=== PATIENT | female | born 1985 | race Caucasian/White ===

== ENCOUNTER 2016-12-01 19:40 | Emergency (ER) | payer SELFPAY ==
--- NOTE | 2016-12-01 20:26 | ER Document Report ---
HPI - HPI Patient complains to provider of: throat pain Pain Level: 3 Context: Patient is a 31-year-old female that comes emergency department for chief complaint of a tender swollen area in her left neck area. She denies any particular pain with swallowing, she denies fever, she denies congestion, cough , she denies any other symptoms. She states she is just nervous about it and wants it checked out. - REPRODUCTIVE Reproductive: DENIES: : - DERM Skin Color: Normal Past Medical History - General Information source: Patient - Social History Smoking Status: Never Smoker Frequency of alcohol use: None Drug Abuse: None Lives with: Family Family History: Reviewed & Not Pertinent Patient has suicidal ideation: No Patient has homicidal ideation: No - Medical History Medical History: Negative Renal/ Medical History: Denies: Hx Peritoneal Dialysis Surgical Hx: Negative - Immunizations Immunizations up to date: Yes Hx Diphtheria, Pertussis, Tetanus Vaccination: Yes Vertical Provider Document - INFECTION CONTROL TRAVEL OUTSIDE OF THE [place] IN LAST 30 DAYS: No - HEENT HEENT: Atraumatic, Normocephalic. negative: Pharyngeal Tenderness, Pharyngeal Erythema, Tympanic Membrane Red, Tympanic Membrane Bulging - NECK Neck: negative: Normal Inspection - There is a small slightly enlarged tender lymph node in the left anterior cervical chain, otherwise unremarkable - RESPIRATORY Respiratory: Breath Sounds Normal, No Respiratory Distress O2 Sat by Pulse Oximetry: 98 - CARDIOVASCULAR Cardiovascular: Regular Rate, Regular Rhythm - GI/ABDOMEN Gastrointestinal: Abdomen Soft, Abdomen Non-Tender - MUSCULOSKELETAL/EXTREMETIES Musculoskeletal/Extremeties: MAEW, FROM, Non-Tender Course - Re-evaluation Re-evalutation: small tender lymph node in the left anterior cervical change with otherwise unremarkable ENT including unremarkable pharyngeal exam. Patient declines treatment for this, states she just wanted to know what it is. No erythema, swelling, significant tenderness, soft tissue swelling, or other concerning abnormality - Vital Signs Vital signs: Temp Pulse Resp BP Pulse Ox 97.9 F 111 H 16 129/88 H 98 12/01/16 19:49 12/01/16 19:49 12/01/16 19:49 12/01/16 19:49 12/01/16 19:49 Discharge - Discharge Clinical Impression: Neck pain Condition: Stable Disposition: HOME, SELF-CARE Additional Instructions: Your examination is consistent with a small tender swollen lymph node, this should simply resolve with time. Take ibuprofen if needed. Follow-up with primary care. Return to emergency department for concerning symptoms.
[2016-12-01 22:22] VITALS: BP 128/78
== END 2016-12-01 22:21 | disposition home or self-care (01) ==
LOC: ER 19:40
DX: M54.2 Cervicalgia (principal); R07.0 Pain in throat; R59.1 Generalized enlarged lymph nodes
CPT/HCPCS: 99283

== ENCOUNTER 2018-07-30 20:22 | Outpatient (CLI) | payer SELFPAY ==
[2018-07-30 21:25] LABS: APPEARANCE,URINE CLEAR; BILIRUBIN,URINE NEGATIVE (NEGATIVE); COLOR,URINE COLORLESS; GLUCOSE, URINE NEGATIVE (NEGATIVE); KETONES,URINE NEGATIVE (NEGATIVE); LEUKOCYTE ESTERASE,URINE NEGATIVE (NEGATIVE); NITRITE,URINE NEGATIVE (NEGATIVE); PROTEIN,URINE NEGATIVE (NEGATIVE); URINE SPECIFIC GRAVITY 1.002; UROBILINOGEN,URINE NEGATIVE mg/dL (<2.0)
[2018-07-30 21:30] LABS: BACTERIA (WET MOUNT) 4+ BACTERIA SEEN; EPITHELIALS (WET MOUNT) 4+ EPITHELIALS SEEN; RBCS (WET MOUNT) 3+ RBCS SEEN; T.VAGINALIS (WET MOUNT) NO TRICHOMONAS SEEN; WBCS (WET MOUNT) 3+ WBCS SEEN; YEAST (WET MOUNT) NO YEAST SEEN
[2018-07-30 21:47] LABS: URINE AMPHETAMINES SCREEN NEGATIVE; URINE BARBITURATES SCREEN NEGATIVE; URINE BENZODIAZEPINES SCREEN NEGATIVE; URINE COCAINE SCREEN NEGATIVE; URINE MARIJUANA (THC) SCREEN NEGATIVE; URINE METHADONE SCREEN NEGATIVE; URINE PHENCYCLIDINE SCREEN NEGATIVE
[2018-07-30 22:56] LABS: CHLAM PCR NOT DETECTED (NOT DETECT); GON PCR NOT DETECTED (NOT DETECT)
== END 2018-07-30 23:14 | disposition home or self-care (01) ==
LOC: LC 20:22
PROVIDERS: ATTEND Obstetrics & Gynecology
PROC: 4A1HXCZ Monitoring of Products of Conception, Cardiac Rate, External Approach (ICD-10-PCS; principal; 2018-07-30)
DX: O99.89 Other specified diseases and conditions complicating pregnancy, childbirth and the puerperium (principal); N89.8 Other specified noninflammatory disorders of vagina; Z3A.21 21 weeks gestation of pregnancy
CPT/HCPCS: 59899; 87210; 81001; 80307; 87491; 87591; Q0114

== ENCOUNTER 2018-12-14 08:01 | Outpatient (CLI) | payer BC ==
--- NOTE | 2018-12-14 10:02 | Non Stress Test Report ---
Non Stress Test Datetime Report Generated by CPN: 12/14/2018 10:02 DEMOGRAPHIC EGA NST: 40.4 VITAL SIGNS Temperature - NST: 98.1 RESP - NST: 16 MONITORING Monitor Explained: Monitor Explained; Test Explained; Patient Verbalized Understanding Time on Monitor: 12/14/2018 08:27 Time off Monitor: 12/14/2018 09:49 NST Duration: 82 NST INTERVENTIONS NST Interventions: PO Hydration Physician Notified NST: Dr. Younger BABY A: [id number] BABY A Movement : Present Contraction Frequency : irregular FHR Baseline : 135 Accelerations : 15X15 Decelerations : None Variability : Moderate 6-25bpm NST Review: Meets Criteria for Reactive NST NST Review and Verified By : Dalton Felix RN NST Results: Reactive NST REPORT Report Trigger: Send Report
[2018-12-14 11:00] LABS: APPEARANCE,URINE SLIGHTLY-CLOUDY; BILIRUBIN,URINE NEGATIVE (NEGATIVE); COLOR,URINE YELLOW; GLUCOSE, URINE NEGATIVE (NEGATIVE); KETONES,URINE NEGATIVE (NEGATIVE); LEUKOCYTE ESTERASE,URINE TRACE (NEGATIVE); NITRITE,URINE NEGATIVE (NEGATIVE); PROTEIN,URINE NEGATIVE (NEGATIVE); URINE SPECIFIC GRAVITY 1.014; UROBILINOGEN,URINE NEGATIVE mg/dL (<2.0)
[2018-12-14 11:25] LABS: URINE AMPHETAMINES SCREEN NEGATIVE; URINE BARBITURATES SCREEN NEGATIVE; URINE BENZODIAZEPINES SCREEN NEGATIVE; URINE COCAINE SCREEN NEGATIVE; URINE MARIJUANA (THC) SCREEN NEGATIVE; URINE METHADONE SCREEN NEGATIVE; URINE PHENCYCLIDINE SCREEN NEGATIVE
== END 2018-12-14 10:17 | disposition home or self-care (01) ==
LOC: LC 08:01
PROVIDERS: ATTEND Obstetrics & Gynecology
PROC: 4A1HXCZ Monitoring of Products of Conception, Cardiac Rate, External Approach (ICD-10-PCS; principal; 2018-12-14)
DX: O99.283 Endocrine, nutritional and metabolic diseases complicating pregnancy, third trimester (principal); E86.0 Dehydration; O48.0 Post-term pregnancy; Z3A.40 40 weeks gestation of pregnancy
CPT/HCPCS: 59025; 80307; 81005

== ENCOUNTER 2018-12-15 03:51 | Inpatient (IN) | payer BC ==
[2018-12-15] MEDS ORDERED: OXYTOCIN/NORMAL SALINE 20 UNIT/1,000 ML RTUINJ IV PRN ×2 (04:05→10:33)
[2018-12-15] MEDS ORDERED: RINGERS SOLUTION,LACTATED 1,000 ML IV PRN (04:05)
[2018-12-15 04:22] LABS: APPEARANCE,URINE SLIGHTLY-CLOUDY; BILIRUBIN,URINE NEGATIVE (NEGATIVE); COLOR,URINE YELLOW; GLUCOSE, URINE NEGATIVE (NEGATIVE); KETONES,URINE TRACE mg/dL (NEGATIVE); LEUKOCYTE ESTERASE,URINE TRACE (NEGATIVE); NITRITE,URINE NEGATIVE (NEGATIVE); PROTEIN,URINE NEGATIVE (NEGATIVE); URINE SPECIFIC GRAVITY 1.014; UROBILINOGEN,URINE NEGATIVE mg/dL (<2.0)
[2018-12-15] MEDS ORDERED: RINGERS SOLUTION,LACTATED 300 ML IV ONE (04:30)
[2018-12-15 04:31] LABS: URINE AMPHETAMINES SCREEN NEGATIVE; URINE BARBITURATES SCREEN NEGATIVE; URINE BENZODIAZEPINES SCREEN NEGATIVE; URINE COCAINE SCREEN NEGATIVE; URINE MARIJUANA (THC) SCREEN NEGATIVE; URINE METHADONE SCREEN NEGATIVE; URINE PHENCYCLIDINE SCREEN NEGATIVE
[2018-12-15 04:55] LABS: ABSOLUTE LYMPHOCYTES (AUTO) 1.6 10^3/uL (0.5-4.7); ABSOLUTE MONOCYTES (AUTO) 0.9 10^3/uL (0.1-1.4); ABSOLUTE NEUT (AUTO) 13.1 10^3/uL (1.7-8.2); BASOPHILS % (AUTO) 0.2 % (0-2); EOSINOPHILS % (AUTO) 0.2 % (0-6); HEMATOCRIT 40.8 % (36.0-47.0); HEMOGLOBIN 13.9 g/dL (12.0-15.5); MEAN CORPUSCULAR HEMOGLOBIN 32.6 pg (27.0-33.4); MEAN CORPUSCULAR VOLUME 96 fl (80-97); MONOCYTES % (AUTO) 5.6 % (3-13); PLATELET COUNT 208 10^3/uL (150-450); RED BLOOD COUNT 4.25 10^6/uL (3.72-5.28); RED CELL DISTRIBUTION WIDTH 13.5 % (11.5-14.0); TOTAL CELLS COUNTED % (AUTO) 100 %; WHITE BLOOD COUNT 15.5 10^3/uL (4.0-10.5)
[2018-12-15] MEDS ORDERED: LIDOCAINE 1% INJ-PF (10 MG/ML) 30 ML SDV ONE ×2 (05:11→07:41)
[2018-12-15] MEDS ORDERED: OXYTOCIN 10 UNIT/ML VIAL ONE (05:11)
[2018-12-15] MEDS ORDERED: MISOPROSTOL 0.2 MG TABLET ONE ×2 (05:11→07:41)
[2018-12-15] MEDS ORDERED: OXYTOCIN/NORMAL SALINE 0 UNIT/0 ML RTUINJ ONE (05:12)
[2018-12-15] MEDS ORDERED: NALBUPHINE HCL INJ 10 MG/1 ML AMPULE ONE (05:35)
[2018-12-15] MEDS ORDERED: PROMETHAZINE HCL INJ 25 MG/1 ML VIAL ONE (05:35)
[2018-12-15] MEDS ORDERED: PROMETHAZINE HCL INJ 25 MG/1 ML VIAL IV ONE (06:00)
[2018-12-15] MEDS ORDERED: NALBUPHINE HCL INJ 10 MG/1 ML AMPULE INJ ONE (06:00)
--- NOTE | 2018-12-15 07:40 | Admission Physical ---
Datetime Report Generated by CPN: 12/15/2018 07:39 CURRENT ADMISSION Chief Complaint: Uterine Contractions Indication for Induction: Not Applicable Admit Impression : Term, Intrauterine ; Active Labor Admit Plan: Admit to Unit; Initiate Labor Protocol ALLERGIES Medication Allergies: Unknown Medication Allergies: No Known Allergies (07/30/2018) Latex: No Latex Allergies Environmental Allergies: Cats OBSTETRICAL HISTORY EDC: 12/10/2018 00:00 : 3 Para: 1 Term: 1 : 0 SAB: 0 IAB: 0 Ectopic: 0 Livin Cesareans: 0 VBACs: 0 Multiple Births: 0 Gestational Diabetes: No Rh Sensitization: No Incompetent Cervix: No SAMIA: No Infertility: No ART Treatment: No Uterine Anomaly: No IUGR: No Hx Previous C/S: No Macrosomia: No Hx Loss/Stillborn: No PIH: No Hx : No Placenta Previa/Abruption: No Depression/PP Depression: No PTL/PROM: No Post Hemorrhage: No SEE RECORDS Alcohol: No Marijuana : No Cocaine: No Other Illicit Drugs: No Cigarettes: Never Smoker. 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 Heart Disease: No Hosp/Surgery: No Autoimmune Disorder: No Anesthetic Complications: No Kidney Disease: No Abnormal Pap Smear: No Neuro/Epilepsy: No Psychiatric Disorders: No Other Medical Diseases: No Hepatitis/Liver Disease: No Significant Family History: No Varicosities/Phlebitis: No Trauma/Violence : No Thyroid Dysfunction: No INFECTIOUS HISTORY Gonorrhea: No Genital Herpes: No Chlamydia: No Tuberculosis: No Syphilis: No Hepatitis: No HIV/AIDS Exposure: No Rash or Viral Illness: No HPV: No PHYSICAL EXAM General: Normal HEENT: Normal Neurologic: Normal Thyroid: Normal Heart: Normal Lungs: Normal Breast: Normal Back: Normal Abdomen: Normal Genitourinary Exam: Normal Extremities: Normal DTRs: Normal Pelvic Type: Adequate Vital Signs: Reviewed; Within Normal Limits VAGINAL EXAM Dilatation: 3 Effacement: 50 Station: -3 MEMBRANES Membranes: Intact FETUS A EGA: 40.5 Monitoring: External US FHR- Baseline: 130s Variability: Moderate 6-25bpm Accelerations: 15X15 Decelerations: None FHR Category: Category I Admit Comment: presents to L_D c/o contractions. She was seen yesterday c/o some bloody show and ctx. She is a scheduled inducton for today. Her cervix is 3 cm, which is unchanged. She is GBS negative. She has progressed to 9 cm since arrival. PLANS FOR LABOR AND DELIVERY Labor and Delivery: None Pain Management: Epidural Feeding Preference: Breast Circumcision: N/A INFORMED CONSENT Signature: with User ID: [email or web address]
[2018-12-15] MEDS ORDERED: OXYTOCIN/NORMAL SALINE 20 UNIT/1,000 ML RTUINJ ONE (07:41)
[2018-12-15] MEDS ORDERED: FENTANYL/BUPIVACAINE/NS/PF 300 MCG/150 ML RTUINJ EPI ONE ×2 (07:45→08:05)
[2018-12-15] MEDS ORDERED: BUPIVACAINE HCL 0.25 % INJ/PF (2.5 MG/1 ML) 30 ML VIAL ONE (07:45)
[2018-12-15] MEDS ORDERED: FENTANYL CITRATE INJ/PF 100 MCG/2 ML AMPUL ONE (07:45)
[2018-12-15] MEDS ORDERED: PHENYLEPHRINE HCL INJ/PF 10 MG/1 ML SDV ONE (07:45)
[2018-12-15] MEDS ORDERED: EPHEDRINE SULFATE INJ 50 MG/1 ML AMPULE ONE (07:45)
[2018-12-15] MEDS ORDERED: ACETAMINOPHEN 650 MG SUPP.RECT PR PRN (10:33)
[2018-12-15] MEDS ORDERED: MEASLES,MUMPS&RUBELLA VACC/PF 0.5 ML VIAL SUBCUT PRN (10:33)
[2018-12-15] MEDS ORDERED: PROMETHAZINE HCL 25 MG TABLET PO PRN (10:33)
[2018-12-15] MEDS ORDERED: ZOLPIDEM TARTRATE 5 MG TABLET PO PRN (10:33)
[2018-12-15] MEDS ORDERED: DIPH/PERTUSS(ACELL)/TETANUS VAC/PF 0.5 ML SYR (>=10YO) IM PRN (10:33)
[2018-12-15] MEDS ORDERED: GLYCERIN/WITCH HAZEL LEAF 1 EACH MED..WIPE TP PRN (10:33)
[2018-12-15] MEDS ORDERED: DIBUCAINE 1% OINTMENT 56 GM TP PRN (10:33)
[2018-12-15] MEDS ORDERED: PROMETHAZINE HCL 25 MG SUPP.RECT PR PRN (10:33)
[2018-12-15] MEDS ORDERED: ACETAMINOPHEN WITH CODEINE #3 TABLET PO PRN ×2 (10:33)
[2018-12-15] MEDS ORDERED: DIPHENHYDRAMINE HCL 25 MG CAPSULE PO PRN (10:33)
[2018-12-15] MEDS ORDERED: MAGNESIUM HYDROXIDE SUSP 30 ML UDCUP PO PRN (10:33)
[2018-12-15] MEDS ORDERED: NA PHOS,M-B/NA PHOS,DI-BA (ADULT) 133 ML ENEMA PR PRN (10:33)
[2018-12-15] MEDS ORDERED: PSEUDOEPHEDRINE HCL 30 MG TABLET PO PRN (10:33)
[2018-12-15] MEDS ORDERED: PROMETHAZINE HCL INJ 25 MG/1 ML VIAL IV PRN (10:33)
[2018-12-15] MEDS ORDERED: BENZOCAINE/MENTHOL AEROSOL SPRAY 56 ML TOP PRN (10:33)
[2018-12-15] MEDS: IBUPROFEN 800 MG TABLET PO SCH ×3 (12:24→21:38)
--- NOTE | 2018-12-15 12:34 | Delivery Summary ---
Del Sum A-C Datetime Report Generated by CPN: 12/15/2018 12:34 DELIVERY PERSONNEL DELIVERY PERSONNEL: [id number] Delivery Doctor:: Beronica Carbajal CNM Nurse Nurse Practitioner Per Diem Certified:: Beronica Carbajal CNM Labor and Delivery Nurse:: Lizbet Green RNhot patcher Nurse:: ROXANNE Whitaker Student Observers:: Magda Lockwood RN Nurse Resident Acid Dipper/SEO MARKETING SPECIALIST: Breanne Castrejon, Acid Dipper/SEO MARKETING SPECIALIST: Reji Katherine, ST MATERNAL INFORMATION Delivery Anesthesia: Epidural Medications After Delivery: Pitocin Bolus-Please Comment Meds After Delivery Comment: itocin 20 units in 1000 ml nss open for bolus Delivery QBL: 400 Maternal Complications: None Provider Comments: MARTHA, TIGHT NUCHAL CORD REDUCED AFTER DELIVERY OF HEAD. FEMALE INFANT WITH SPONTANEOUS CRY. CORD DOUBLE CLAMPED AND CUT. SPONTANEOUS PLACENTA INTACT WITH 3VC. LACERATION REPAIR NOTED ABOVE. MOTHER AND INFANT STABLE IN L_D #6 LABOR SUMMARY EDC: 12/10/2018 00:00 No. Babies in Womb: 1 Attempted: No Labor Anesthesia: Epidural LABOR INFORMATION Reason for Induction: Not Applicable Onset of Labor: 12/15/2018 01:00 Complete Dilatation: 12/15/2018 09:57 Oxytocin: Augmentation Group B Beta Strep: neg Steroids Given: None Reason Steroids Not Administered: Not Applicable MEMBRANES Membranes Rupture Method: Spontaneous Rupture of Membranes: 12/15/2018 09:31 Length of Rupture (hr): 0.68 Amniotic Fluid Color: Clear Amniotic Fluid Amount: Small Amniotic Fluid Odor: Normal STAGES OF LABOR Stage 1 hr: 8 Stage 1 min: 57 Stage 2 hr: 0 Stage 2 min: 15 Stage 3 hr: 0 Stage 3 min: 4 Total Time in Labor hr: 9 Total Time in Labor min: 16 VAGINAL DELIVERY Episiotomy: None Laceration #1: Perineal Laceration Extension #1: Second Degree Laceration Repair: Yes Laceration Repair Note: 2nd degree perineal laceration repaired under epidural anesthesia with 2.0 chromic suture Sponge Count Correct: Yes Sharps Count Correct: Yes CSECTION DELIVERY Primary Indication: N/A Secondary Indication: N/A CSection Incidence: N/A Labor: N/A Elective: N/A CSection Incision: N/A BABY A INFORMATION Infant Delivery Date/Time: 12/15/2018 10:12 Method of Delivery: Vaginal Born in Route : No : N/A Forceps: N/A Vacuum Extraction: N/A Shoulder Dystocia : No PRESENTATION/POSITION BABY A Presentation: Cephalic Cephalic Presentation: Vertex Vertex Position: Right Occipital Anterior Breech Presentation: N/A PLACENTA INFORMATION BABY A Placenta Delivery Time : 12/15/2018 10:16 Placenta Method of Delivery: Spontaneous Placenta Status: Delivered SCORES BABY A Heart Rate 1 min: >100 bpm Resp Effort 1 min: Good Cry Reflex Irritability 1 min: Cough or Sneeze or Pulls Away Muscle Tone 1 min: Some Flexion of Extremities Color 1 min: Body [place], Extremities Blue Resuscitation Effort 1 min: Tactile Stimulation SCORE 1 MIN: 8 Heart Rate 5 min: >100 bpm Resp Effort 5 min: Good Cry Reflex Irritability 5 min: Cough or Sneeze or Pulls Away Muscle Tone 5 min: Active Motion Color 5 min: Body [place], Extremities Blue Resuscitation Effort 5 min: N/A SCORE 5 MIN: 9 INFORMATION BABY A Gestational Age at Delivery: 40.5 Gestational Status: Full Term- 39- 40.6 Weeks Infant Outcome : Liveborn Infant Condition : Stable Sex: Female IDENTIFICATION BABY A Verification Date/Time: 12/15/2018 10:25 ID Band Number: [id number] Mother's Name Verified: Yes RN Verifying Infant: Nu Camp RNC Additional Verifying Personnel: Lizbet Green RN WEIGHT/LENGTH BABY A Birthweight (gm): 3366 Infant Weight (lb): 7 Weight (oz): 7 Infant Length (in): 20.00 Infant Length (cm): 50.80 CORD INFORMATION BABY A No. Cord Vessels: 3 Nuchal Cord : Around Neck x1, Loose Cord Blood Taken: Yes-For Storage (Mom's Blood type +) Infant Suction: None ASSESSMENT BABY A Infant Complications: None Physical Findings at Delivery: Within Normal Limits Infant Respirations: Appears Normal Skin to Skin: Yes Skin to Skin Time (min): 90 Applique Cutter/ALS Called : No Care By: Nu Camp RNC Transferred To: Remains with Mother BABY B INFORMATION : N/A SIGNATURES Assignment: Neil Epstein MD Signature: with User ID: [email or web address] : with User ID: [email or web address] : I was personally available for consultation and serving as supervising physician for the MLP.
[2018-12-15] MEDS: FERROUS SULFATE 325 MG TABLET PO SCH (18:28)
[2018-12-15] MEDS: DOCUSATE SODIUM 100 MG CAPSULE PO SCH (18:28)
[2018-12-15] MEDS: FAMOTIDINE 20 MG TABLET PO SCH (21:38)
[2018-12-16] MEDS: IBUPROFEN 800 MG TABLET PO SCH ×3 (05:17→23:32)
[2018-12-16 05:41] LABS: ABSOLUTE LYMPHOCYTES (AUTO) 2.2 10^3/uL (0.5-4.7); ABSOLUTE MONOCYTES (AUTO) 0.9 10^3/uL (0.1-1.4); BASOPHILS % (AUTO) 0.2 % (0-2); EOSINOPHILS % (AUTO) 0.3 % (0-6); HEMATOCRIT 33.2 % (36.0-47.0); LYMPHOCYTES % (AUTO) 15.8 % (13-45); MEAN CORPUSCULAR HEMOGLOBIN 32.7 pg (27.0-33.4); MEAN CORPUSCULAR HGB CONC 34.2 g/dL (32.0-36.0); MEAN CORPUSCULAR VOLUME 96 fl (80-97); MONOCYTES % (AUTO) 6.2 % (3-13); PLATELET COUNT 173 10^3/uL (150-450); RED BLOOD COUNT 3.47 10^6/uL (3.72-5.28); RED CELL DISTRIBUTION WIDTH 13.5 % (11.5-14.0); SEGMENTED NEUTROPHILS % (AUTO) 77.5 % (42-78); TOTAL CELLS COUNTED % (AUTO) 100 %; WHITE BLOOD COUNT 14.2 10^3/uL (4.0-10.5)
[2018-12-16 05:42] LABS: HEMOGLOBIN 11.3 g/dL (12.0-15.5)
[2018-12-16] MEDS: FERROUS SULFATE 325 MG TABLET PO SCH ×2 (09:30→19:17)
[2018-12-16] MEDS: FAMOTIDINE 20 MG TABLET PO SCH ×2 (09:30→23:31)
[2018-12-16] MEDS: DOCUSATE SODIUM 100 MG CAPSULE PO SCH ×2 (09:30→19:17)
[2018-12-16] MEDS ORDERED: PRENATAL VITAMIN W DHA CAPSULE PO SCH (10:00)
[2018-12-16] MEDS ORDERED: SENNOSIDES/DOCUSATE 8.6-50 MG 1 EACH TABLET PO SCH (10:00)
--- NOTE | 2018-12-16 10:13 | PDOC PROGRESS REPORT ---
Subjective-OB Progress Note for:: 12/16/18 Subjective: reports bleeding slowing, pain controlled with current meds, denies needs. Physical Exam (OB) Vital Signs: Temp Pulse Resp BP Pulse Ox 97.4 F 108 H 18 110/64 99 12/16/18 09:35 12/16/18 09:35 12/16/18 09:35 12/16/18 09:35 12/16/18 09:35 Intake & Output 12/15/18 12/16/18 12/17/18 06:59 06:59 06:59 Intake Total 2500 Balance 2500 Weight 66.8 kg - Abdomen Description: Soft, Round Hernia Present: No Fundal Description: Firm, Midline Fundal Height: u/u - u/2 - Abdominal Distension: No distension Tenderness: Nontender - Extremities Lower extremities: Reinaldo's sign - neg Calf: Normal, Nontender Objective-Diagnostic Laboratory: 12/16/18 05:29 12/16/18 05:29 WBC 14.2 H RBC 3.47 L Hgb 11.3 L D Hct 33.2 L MCV 96 MCH 32.7 MCHC 34.2 RDW 13.5 Plt Count 173 Seg Neutrophils % 77.5 Lymphocytes % 15.8 Monocytes % 6.2 Eosinophils % 0.3 Basophils % 0.2 Absolute Neutrophils 11.0 H Absolute Lymphocytes 2.2 Absolute Monocytes 0.9 Absolute Eosinophils 0.0 Absolute Basophils 0.0 Assessment and Plan(PN) - Assessment and Plan (1) Normal vaginal delivery Is this a current diagnosis for this admission?: Yes (2) Obstetrical laceration, second degree Is this a current diagnosis for this admission?: Yes - Time Spent with Patient Time with patient: Less than 15 minutes Medications reviewed and adjusted accordingly: Yes - Disposition Anticipated Discharge: Home Within: within 24 hours
[2018-12-17] MEDS: IBUPROFEN 800 MG TABLET PO SCH (06:42)
--- NOTE | 2018-12-17 11:08 | PDOC DISCHARGE SUMMARY ---
Final Diagnosis Discharge Date: 12/17/18 - Final Diagnosis (1) Normal vaginal delivery Is this a current diagnosis for this admission?: Yes (2) Obstetrical laceration, second degree Is this a current diagnosis for this admission?: Yes Discharge Data - Discharge Medication Prescriptions: Ibuprofen [Motrin 800 mg Tablet] 800 mg PO Q8HP PRN #60 tablet PRN Reason: Home Medications: Vits96/Iron Fum/Folic [ Tablet] 1 each PO DAILY 07/30/18 Ibuprofen [Motrin 800 mg Tablet] 800 mg PO Q8HP PRN #60 tablet 12/17/18 Reason(s) for Admission: Onset of Labor Procedures: NST Intrapartum Procedure(s): Spontaneous Vaginal Delivery Complication(s): Laceration-Perineal Laceration-Degree: 2nd - Diagnosis Test Laboratory: Temp Pulse Resp BP Pulse Ox 98.1 F 91 18 115/65 99 12/17/18 07:43 12/17/18 07:43 12/17/18 07:43 12/17/18 07:43 12/17/18 07:43 12/15/18 12/15/18 12/16/18 04:02 04:29 05:29 RBC 4.25 3.47 L Hgb 13.9 11.3 L D Hct 40.8 33.2 L Urine Opiates Screen NEGATIVE - Discharge information/Instructions Discharge Activity: Balance Activity w/Rest, Pelvic Rest Discharge Diet: Regular Disposition: HOME, SELF-CARE Follow up with: [facility] in: 4, Weeks
[2018-12-17 11:09] VITALS: BP 110/73
== END 2018-12-17 11:35 | disposition home or self-care (01) | DRG 807 ==
LOC: LC 03:51 → LR 04:10 → 2S 12:32
PROVIDERS: ADMIT Obstetrics & Gynecology Gynecology; ATTEND Obstetrics & Gynecology Gynecology
PROC: 10E0XZZ Delivery of Products of Conception, External Approach (ICD-10-PCS; principal; 2018-12-15)
PROC: 0KQM0ZZ Repair Perineum Muscle, Open Approach (ICD-10-PCS; 2018-12-15)
DX: O69.1XX0 Labor and delivery complicated by cord around neck, with compression, not applicable or unspecified (principal); Z37.0 Single live birth; O70.1 Second degree perineal laceration during delivery; Z3A.40 40 weeks gestation of pregnancy
CPT/HCPCS: 36415; 80307; 81005; 85025; 86592; 86850; 86900; 86901; 94760; J2300; J2370; J2550; J2590; J3010; J3490